=== PATIENT | female | born 1970 | race Caucasian/White ===

== ENCOUNTER → 2024-03-25 09:33 | Outpatient (REF) | payer OTHER, SELFPAY | LOC: RAD 09:33 | PROVIDERS: ATTENDING PHYSICIAN Internal Medicine | DX: M54.12 Radiculopathy, cervical region (principal) | CPT/HCPCS: 72050; 73130 ==

== ENCOUNTER → 2024-04-13 13:42 | Outpatient (REF) | payer OTHER, SELFPAY | LOC: HWRAD 13:42 | PROVIDERS: ATTENDING PHYSICIAN Obstetrics & Gynecology; FAMILY PHYSICIAN Internal Medicine | DX: R10.2 Pelvic and perineal pain (principal) | CPT/HCPCS: 76830; 76856 ==

== ENCOUNTER 2025-05-03 16:38 | Emergency (ER) | payer BC, SELFPAY ==
[2025-05-03 16:40] VITALS: BP 149/91
--- NOTE | 2025-05-03 18:13 | ED.GENMED ---
History of Present Illness
General
Chief Complaint: Extremity Pain (non-traumatic)
Source: patient
Exam Limitations: none
Time Seen by Provider: 05/03/25 17:08
Nursing documentation reviewed up to this point in time: agreed with
History of Present Illness
History of Present Illness:
see MDM
Past History
Past History
ED Past Medical History: Hypercholesterolemia and Psychiatric (Anxiety, insomnia)
ED Past Surgical History: None
Social History
Tobacco: Non-smoker
Alcohol: None
Drug: None
Employment: Employed
Review of Systems
Review of Systems
Allergies reviewed?: Yes
All Other Systems: Not applicable
Phy Exam
Physical Exam
Physical Exam:
GENERAL: Alert , in no apparent distress, comfortable at rest
HEAD: NCAT
CV: 2+ radial pulse, cap refill intact
NEUROLOGICAL: Alert and oriented, no focal neuro deficits, , 5/5 strength, sensation intact, ambulation slight limp right leg
SKIN: Warm and dry,
No bruising, redness, warmth to the right dorsal hand
MUSCULOSKELETAL: Right dorsal hand slightly tender, suspect there is a slight ganglion cyst under the surface, there is a slightly prominent section of vein overlying was tender, she has some painful flexion and extension but full range of motion is
intact without any swelling to the joint of the wrist, full finger range of motion, cap refill intact, no extension of erythema up the hand or wrist
PSYCH: Normal and appropriate interaction.
Course
Orders/Labs/Results
Orders:
Orders
05/03/25 17:37
Venous Doppler Upr Ext Right [US Periph Venous UPPER Ext RT] Urgent
Comment:
Reason For Exam: R hand swelling (eval vein in dorsal hand and dvt)
Vital Signs
Initial and Last Documented VS:
Initial Vital Signs
Temp Pulse Resp BP Pulse Ox
36.7 C 83 20 149/91 99
05/03/25 16:40 05/03/25 16:40 05/03/25 16:40 05/03/25 16:40 05/03/25 16:40
Last Documented Vital Signs
Temp Pulse Resp BP Pulse Ox
36.7 C 76 16 150/81 98
05/03/25 16:40 05/03/25 20:32 05/03/25 20:32 05/03/25 20:32 05/03/25 20:32
MDM/Problems Addressed
Differential Diagnosis Includes:
see MDM
MDM/Problems Addressed:
Note:
CHIEF COMPLAINT(S)
Swelling and tenderness in the left hand.
HISTORY OF PRESENT ILLNESS
The patient is a 55-year-old female who presents with swelling and tenderness in the right dorsal hand. She reports that the symptoms began shortly after a vacation, and describes the area as very tender and sore, although not excruciatingly
painful. The patient works with her hand, using a mouse at a computer all day for work. . Approximately one year ago, an X-ray revealed arthritis in the hand/wrist. The patient is concerned about the possibility of a blood clot, noting that the
veins appear more prominent than usual. However, she denies any recent trauma, IV placement, or history of clotting disorders.
The patient expresses anxiety, fearing a blood clot, and asks if overuse could be a contributing factor. The patient denies any history of significant bleeding or clotting issues.
pt hasn ot had any proximal arm swelling/tenderness
no cold arm/fingers
no redness
pt say stoday when she noticed the pain and swelling the vein was more dilated and now it looks better
still is painful
SOCIAL [employer]MINANTS AFFECTING HEALTH
The patient is employed as a wireless field technician, suggesting frequent use of her hands, which may contribute to her symptoms.
MEDICATIONS
Ibuprofen as needed.
PHYSICAL EXAM
- The left hand: Notable for prominent vein and tenderness. Swelling has decreased since arrival.
- Nursing notes reviewed and vital signs reviewed.
PLAN
An ultrasound of the left hand to rule out the presence of a blood clot.
Recommend the patient to take ibuprofen as anti-inflammatory treatment.
Consider the use of a proton-pump inhibitor like omeprazole while taking ibuprofen or aspirin to protect the stomach.
DIFFERENTIAL DIAGNOSIS
The differential diagnosis includes, in no particular order and is not limited to:
1. Superficial thrombophlebitis
2. Ganglion cyst
3. Osteoarthritis flare-up
4. Tendinitis
5. Synovitis
6. Rheumatoid arthritis exacerbation
7. Carpal tunnel syndrome
8. Dupuytrens contracture
9. Cellulitis
10. Trauma-related swelling
55-year-old female, uses a mouse daily and has had some chronic ongoing right wrist and hand pain presents after she noticed slightly swollen blood vessel/vein on the dorsal aspect of her right wrist today which was tender. She was worried about a
blood clot, she is traveling soon. She has no streaking up her arm, there was no venous access in this spot recently.
On exam I suspect she has a ganglion cyst and some chronic tendinitis, the vein itself does not look significantly swollen and is not firm, patient was insistent on ruling out a blood clot. Did evaluate her right upper extremity for DVT which was
negative and the tech scanned over the surface of the hand without any superficial thrombophlebitis. Patient given a wrist brace, NSAIDs, warm compresses recommended
*Pulse Oximetry
SaO2: 99
Oxygen Mode of Delivery: Room air
Patient hypoxic: no (98)
*Critical Care Note
Total Time (30-74mins, 75-104mins- exclusive of procedures): Not Applicable
ED Attending Note
-
Portions of this chart may have been created with voice recognition software.� Occasional wrong word or��sound alike� substitutions may have occurred due to the inherent limitations of voice recognition software.
Discharge Plan
Departure
Patient Disposition: Home (Routine Discharge)
Date of Disposition: 05/03/25
Time of Disposition: 20:24
Patient with high blood pressure during this ER visit?: Yes
Condition: Fair
Discharge Problem:
Hand pain
Instructions: Muscle and Bone Pain (DC)
Prescriptions:
No Action
fluticasone propionate [Flovent HFA] 1 PUFF HFA aerosol inhaler
1 puff inhalation R BID Qty: 1 0RF
mpfrxisavgtm-ogozwywlp-cfkrckr [Promethazine VC-Codeine] 118 ML syrup
5 ml PO Q6HPRN PRN (Reason: cough) Qty: 100 0RF
cyclobenzaprine 10 MG tablet
10 mg PO TIDPRN PRN (Reason: severe back pain) Qty: 20 0RF
alprazolam 0.5 MG tablet
0.5 mg PO QPM PRN (Reason: insomnia) Qty: 12 0RF
Referrals:
Tim Galeas MD [Family Provider, Internal Medicine] - Follow up in 5-7 days
Activity Restrictions/Additional Instructions:
Not sure entirely the cause your pain and swelling in your right hand however you could have a ganglion cyst which is from overuse usually. This also could be just some arthritic changes causing some inflammation. Importantly the vein that was
dilated or distended on your hand is not have any clot in it and there is no deep vein clot. Warm compresses, NSAIDs which is like ibuprofen 600 mg 3 times a day with food for 3 to 5 days. Follow-up with the hand specialist as needed. Return for
any concerns
Interventions
Interventions:
*Risk Screen - Suicide Last Done: 05/03/25 16:40
*General Assessment Last Done: 05/03/25 16:40
*Neglect/Abuse Screening Last Done: 05/03/25 16:40
*ED- Fall Risk Assessment Last Done: 05/03/25 18:11
*Nursing Disposition Last Done: 05/03/25 20:32
ED-Skin Assessment Last Done: 05/03/25 18:09
ED-Peripheral Vascular Assessment Last Done: 05/03/25 18:09
ED-Musculoskeletal Assessment Last Done: 05/03/25 18:09
Discharge Date and Time
Discharge Date/Time: 05/03/25 20:33
Print Language: KOREAN
[2025-05-03 20:32] VITALS: BP 150/81
== END 2025-05-03 20:33 | disposition home or self-care (01) ==
LOC: EMR 16:38
PROVIDERS: EMERGENCY PHYSICIAN Emergency Medicine; FAMILY PHYSICIAN Internal Medicine
DX: M79.641 Pain in right hand (principal); E78.00 Pure hypercholesterolemia, unspecified; F41.9 Anxiety disorder, unspecified; M19.031 Primary osteoarthritis, right wrist; M19.041 Primary osteoarthritis, right hand
CPT/HCPCS: 99284; 93971

== ENCOUNTER 2025-06-28 00:46 | Day surgery (SDC) | payer BC, SELFPAY ==
[2025-06-27 15:21] VITALS: BP 154/104
[2025-06-27 19:03] VITALS: BMI 28.7
--- NOTE | 2025-06-27 19:11 | ED.GENMED ---
History of Present Illness
General
Chief Complaint: Chest Pain
Source: patient
Exam Limitations: none
Time Seen by Provider: 06/27/25 18:08
Nursing documentation reviewed up to this point in time: agreed with
History of Present Illness
History of Present Illness:
55-year-old female presents emerged ferment due to right back pain and right upper quadrant abdominal pain. This started this morning. She was seen and had a CAT scan of her chest that showed nondisplaced left 5th and 7th rib fractures. There was
no trauma.
Past History
Past History
ED Past Medical History: Hypercholesterolemia and Psychiatric (Anxiety, insomnia)
ED Past Surgical History: Other (Breast implants)
Social History
Tobacco: Non-smoker
Alcohol: None
Drug: None
Employment: Employed
Review of Systems
Review of Systems
Allergies reviewed?: Yes
All Other Systems: Not applicable
Constitutional: Reports no symptoms
EENT: Reports no symptoms
Respiratory: Reports no symptoms
Cardiac: Reports no symptoms
ABD/GI: Reports abdominal pain
: Reports no symptoms
Musculoskeletal: Reports back pain
Skin: Reports no symptoms
Neurological: Reports no symptoms
Endocrine: Reports no symptoms
Hematologic/Lymphatic: Reports no symptoms
Psychiatric: Reports no symptoms
Phy Exam
Physical Exam
Physical Exam:
Physical Exam
General: no apparent distress, not acutely ill
Neck: supple. no meningeal signs. normal posterior pharynx
Heart: s1/s2 regular rate and rhythm, no murmur. equal radial
pulses.
HEENT: Pupils equal round reactive to light, EOMI
Lungs: no acute respiratory distress. clear bilaterally
Abdomen: normal bowel sounds. ruq tenderness. no CVAT
Neuro: alert and oriented. no focal neurological deficits cranial nerves II through XII intact
Skin: no rash
Psychiatric: well kept. interactive and cooperative
Extremities: no edema. no calf tenderness. negative homans. good distal pulses
Scores
Heart Score for Chest Pain Patients
STEMI patient?: Not applicable
Course
Orders/Labs/Results
Orders:
Orders
06/27/25 15:12
Electrocardiogram (*1) Urgent
Reason for Study: Chest Pain
EKG- Treatment ONCE
06/27/25 19:10
CR Chest - 2 Views Urgent
Comment:
Reason For Exam: right rib pain
US Abdomen Complete/Upper Urgent
Comment:
Reason For Exam: ruq pain
06/27/25 19:11
IV Insert/Care/Rem.- Treatment PRN
06/27/25 19:30
Complete Blood Count/With Diff Urgent
Comprehensive Metabolic Panel Urgent
D-Dimer Urgent
Lipase Urgent
Troponin I Urgent
06/27/25 20:07
Ketorolac [Toradol] 15 mg IV NOW STA
06/27/25 20:13
Add On- LAB Urgent
Tests Added?: lipase
06/27/25 23:15
0.9% Sodium Chloride 1000 ml [Nss] 1,000 ml IV BOLUS
Piperacillin/Tazo 4.5 Gram [Zosyn] 4.5 gram in 100 ml IV NOW
Abnormal Lab Results
06/27/25
19:30
RBC 4.10 L 10^6/uL
(4.20-5.40)
MCH 32.2 H pg
(27.0-31.0)
Creatinine 0.5 L mg/dL
(0.6-1.0)
ALT 37 H U/L
(0-35)
06/27/25 19:30
06/27/25 19:30
Vital Signs
Initial and Last Documented VS:
Initial Vital Signs
Temp Pulse Resp BP Pulse Ox
98.5 F 95 18 154/104 100
06/27/25 15:21 06/27/25 15:21 06/27/25 15:21 06/27/25 15:21 06/27/25 15:21
Last Documented Vital Signs
Temp Pulse Resp BP Pulse Ox
97.9 F 79 18 144/90 100
06/27/25 19:12 06/27/25 19:12 06/27/25 19:12 06/27/25 19:12 06/27/25 19:11
MDM/Problems Addressed
Differential Diagnosis Includes:
Pancreatitis cholecystitis rib fracture
MDM/Problems Addressed:
55-year-old female with suspected cholecystitis, large calculus seen on ultrasound, persistent pain. Discussed with general surgery, Dr. Barton who will admit, and plan for likely cholecystectomy. Zosyn given.
*Radiology
Radiology exam reviewed: radiology read reviewed (Ultrasound shows 2 cm gallstone, hepatosteatosis)
*Pulse Oximetry
SaO2: 100
Oxygen Mode of Delivery: Room air
Patient hypoxic: no
*EKG
Interpreted by ED Provider?: Yes
EKG Intrepretation Date: 06/27/25
EKG Intrepretation Time: 15:14
Interpretation: normal
Comparison EKG: no comparison EKG present
Heart Rate: 98
Rate: normal
Rhythm: sinus
[place]: normal axis
Interval: normal interval
QRS Pattern: normal QRS
Ischemia: no ischemia
*Critical Care Note
Total Time (30-74mins, 75-104mins- exclusive of procedures): Not Applicable
Patient Management
Social determinants of health affecting care: Living situation
Discussion with other providers: Pediatric Neurologist (general surgeon)
Escalation/DeEscalation of care consider admission/obs:
admit indicated
ED Attending Note
-
Portions of this chart may have been created with voice recognition software.� Occasional wrong word or��sound alike� substitutions may have occurred due to the inherent limitations of voice recognition software.
Discharge Plan
Departure
Patient Disposition: Admit
Date of Disposition: 06/27/25
Time of Disposition: 23:13
Admit to: Med/Surg
Presentation/result/management discussed w/ accepting MD/DO: general surg Dr. Barton
Patient with high blood pressure during this ER visit?: Yes
Condition: Good
Discharge Problem:
Calculous cholecystitis
Prescriptions:
No Action
fluticasone propionate [Flovent HFA] 1 PUFF HFA aerosol inhaler
1 puff inhalation R BID Qty: 1 0RF
qqzfjqhvjacj-jkypucrge-okjwcpv [Promethazine VC-Codeine] 118 ML syrup
5 ml PO Q6HPRN PRN (Reason: cough) Qty: 100 0RF
cyclobenzaprine 10 MG tablet
10 mg PO TIDPRN PRN (Reason: severe back pain) Qty: 20 0RF
alprazolam 0.5 MG tablet
0.5 mg PO QPM PRN (Reason: insomnia) Qty: 12 0RF
Referrals:
Tim Galeas MD [Family Provider, Internal Medicine]
Interventions
Interventions:
*Risk Screen - Suicide Last Done: 06/27/25 15:21
*General Assessment Last Done: 06/27/25 19:06
*Neglect/Abuse Screening Last Done: 06/27/25 19:06
*ED COVID-19 Vaccine History Last Done: 06/27/25 19:06
*ED Influenza Vaccine History Last Done: 06/27/25 19:06
[facility] Fall Risk Assessment Tool Last Done: 06/27/25 19:06
ED- Cardiac Assessment Last Done: 06/27/25 19:06
Discharge Date and Time
Print Language: FRISIAN
[2025-06-27 19:12] VITALS: BP 144/90
[2025-06-27 19:37] LABS: Hematocrit 38.0 % (37.0-47.0); Hemoglobin 13.2 g/dL (12.0-16.0); Mean Corp Hgb Conc. 34.7 g/dL (33.0-37.0); Mean Corpuscular Volume 92.7 fL (81.0-99.0); Nucleated Red Blood Cells % 0 %; Platelet Count 308 10^3/uL (130-400); Red Cell Dist. Width 11.9 % (11.5-14.5)
[2025-06-27 19:56] LABS: D-Dimer < 0.27 ug/mlFEU (0.00-0.50)
[2025-06-27 20:10] LABS: ALT (SGPT) 37 U/L (0-35); AST (SGOT) 30 U/L (14-36); Albumin 4.8 g/dl (3.5-5.0); Alkaline Phosphatase 52 U/L (38-126); Blood Urea Nitrogen 11 mg/dl (7-17); Calcium 9.4 mg/dl (8.4-10.2); Carbon Dioxide 25 mmol/L (22-30); Chloride 104 mmol/L (98-107); Estimated Creatinine Clearance 95 ml/min; Glucose 85 mg/dl (70-99); Potassium 4.2 mmol/L (3.5-5.1); Sodium 136 mmol/L (135-145); Total Protein 8.1 g/dl (6.3-8.2); eGFR > 60.00
[2025-06-27 20:12] LABS: Troponin I < 0.012 ng/ml
[2025-06-27 20:28] LABS: Lipase 49 U/L (23-300)
[2025-06-27] MEDS: TORADOL 15 MG IV (21:05)
[2025-06-28] MEDS: NSS 1000 IV (00:14)
[2025-06-28] MEDS: ZOSYN 100 IV (00:14)
--- NOTE | 2025-06-28 00:50 | HPS.HSE ---
Addendum entered and electronically signed by Geoffrey Candelario MD 06/28/25 11:39:
Patient seen and examined.
Patient is a 55 yo F with a PMH of anxiety, HLD, and IBS with diarrhea. Ms. Nichole presents with approximately 1 week of RIGHT sided flank pain. Symptoms have been fairly persistent. No clear association with oral intake. Symptoms are
worsened in the evening. No nausea or vomiting. No fevers or chills. She denies any jaundice, pale stools, or tea colored urine. She was previously seen last week by her PCP and underwent a CT of the chest which demonstrated nondisplaced rib
fractures of the LEFT 5th and 7th ribs. She denies any history of trauma. She was prescribed antispasmodics with no significant improvement in her symptoms. She denies any urinary symptoms. Family history notable for a sister postcholecystectomy
with similar back pain on presentation.
Gen: NAD
Abd: soft, NT/ND, non-peritoneal, negative Goins sign
Back: Negative CVA tenderness, no flank ecchymoses or external trauma
Labs and US were reviewed.
Patient is a 55 yo F p/w back pain likely secondary to acute cholecystitis
Symptoms are most likely related to acute cholecystitis given the worsening of discomfort in the evening, presence of a large stone on ultrasound, and family history with similar symptoms. Differential includes gastritis, duodenitis, or MSK
pathology. Given the somewhat discrepancy in diagnosis we will plan on a CT scan of the abdomen pelvis with oral and IV contrast to help better confirm the diagnosis.
The natural history and pathophysiology of biliary and stone disease was discussed. Anatomy was reviewed. Workup was reviewed. Tentative plan for a laparoscopic cholecystectomy with intraoperative cholangiogram. The procedure itself, as well as
the risks, benefits, and alternatives was discussed. Specifically, we discussed the risks of bleeding, infection, injury to surrounding structures (bowel, bile ducts), CBD injury, need for open procedure. Typical post procedure recovery was
discussed. Timing of operative intervention pending workup as noted above and OR availability. All questions answered.
-- CT abdomen/pelvis with PO and IV contrast
-- Abx: Zosyn
-- NPO, IVF
-- Pain control: Tylenol, Toradol, IV Dilaudid as needed
-- Timing of cholecystectomy TBD based on work-up above and OR availability
Original Note:
Family Physician
-
Family Physician: Tim Galeas
Chief Complaint
-
'Right back pain'
History of Present Illness
55 year old patient with PMH of IBS with diarrhea, High cholesterol, presents to ER with the complain of 'chest pain' pointing at the mid chest, right upper back 'stabbing 'pain and 'sharp' pain between shoulder blades. States this pain started
three days ago, been taking cyclobenzaprine and Motrin to relieve the pain but its been getting worse. Patient denies any stomach pain, nausea, vomiting, Voiding without difficulty. LBM 12/3 with diarrhea. Patient reports she was having chest pain,
left back side pain last week, which she went to PCP for and had outpatient CT chest, which showed nondisplaced left 5th and 7th ribs. PCP placed her on Cyclobenzaprine and is planning to have an outpatient Dexa scan this Wednesday. noted CT chest
results on her [employer] jaz on phone.
Medical History
Past Medical History
Past Medical History: Reports GERD, Hypercholesterolemia and Psychiatric (anxiety )
Additional Past Medical History:
IBS with Diarrhea
Past Surgical History: Reports Other
Additional Past Surgical History:
Breast implants
Social History
Tobacco: Non-smoker
Alcohol: None
Drug: None
Living: With Family
Family History
Family History: Not pertinent
Allergies / Home Medications
Allergies reflects when Allergies were last updated in [facility].
Home Medications with original date entered in [facility]
Allergy/Medication List:
Allergies
Allergy/AdvReac Type Severity Reaction Status Date / Time
No Known Allergies Allergy Verified 05/03/25 16:43
Home Medications
fluticasone propionate 110 mcg/actuation HFA aerosol inhaler (Flovent HFA) 1 puff inhalation R BID ##1 08/21/14
uvmiztohgyni-nmvddyaxfrraw-iolngft 6.25 mg-5 mg-10 mg/5 mL oral syrup (Promethazine VC-Codeine) 5 ml PO Q6HPRN PRN cough #100 mL 08/21/14
cyclobenzaprine 10 mg tablet 10 mg PO TIDPRN PRN severe back pain #20 tabs 04/30/16
alprazolam 0.5 mg tablet 0.5 mg PO QPM PRN insomnia #12 tabs 03/11/18
Review of Systems
-
History Source: Patient
A 12 point ROS was completed and negative except as noted: Yes
Constitutional: Reports No Symptoms
EENT: Reports No Symptoms
Respiratory: Reports No Symptoms
Cardiac: Reports No Symptoms
Abdomen/GI: Reports No Symptoms
: Reports No Symptoms
Musculoskeletal: Reports Other (reports back pain, between shoulder blades )
Skin: Reports No Symptoms
Neurological: Reports No Symptoms
Endocrine: Reports No Symptoms
Hematologic/Lymphatic: Reports No Symptoms
Psych: Reports No Symptoms and Calm
Physical Exam
Vital Signs
Vital Signs
Temp Pulse Resp BP Pulse Ox
97.9 F 79 18 144/90 100
06/27/25 19:12 06/27/25 19:12 06/27/25 19:12 06/27/25 19:12 06/27/25 19:11
Physical Exam
General: Well Developed, Well Nourished and No Apparent Distress
HEENT: NormoCephalic, Moist mucous membranes and Atraumatic
Respiratory: Clear and Non Labored Respirations
Cardiac: S1/S2 and Regular Rhythm
Breast: Deferred by me
GI: Soft, Non Tender, Non Distended and Normal Bowel Sounds
Rectal: Deferred by Provider
Genito-urinary: Deferred by me
Musculoskeletal: No Clubbing, No Cyanosis, No Edema and Other (pain induced with palpation right upper back, chest )
Skin: Warm and Dry
Neuro: Awake, AO x 3 and Nonfocal/grossly intact
Hematologic/Lymphatic: No Lymphadenopathy
Psych: Anxious
Laboratory Results
-
06/27/25 19:30
06/27/25 19:30
Laboratory Results
Total Bilirubin 0.7 mg/dl (0.2-1.3) 06/27/25 19:30
AST 30 U/L (14-36) 06/27/25 19:30
ALT 37 U/L (0-35) H 06/27/25:
Alkaline Phosphatase 52 U/L (38-126) 06/27/25:30
Troponin I < 0.012 ng/ml 06/27/25:
Lipase 49 U/L (23-300) 06/27/25 19:30
Impression/Plan
-
55 year old patient with Right back pain, chest pain (mid chest, right upper chest)
# Right upper back pain likely due to cholelithiasis without sonographic evidence of acute cholecystitis,
symptomatic Cholelithiasis?
Abdomen US:
1.Cholelithiasis without sonographic evidence for acute cholecystitis.
2. Gallbladder adenomyomatosis.
3. Increased echogenicity in the liver, compatible with underlying hepatocellular disease, which most commonly relates to fatty infiltration of the liver.
- Continue IV Zosyn
- Continue IV Ketorolac, Dilaudid
- Continue IV Fluids
-Observation
-Admit to Dr. Barton
# Chest pain likely musculoskeletal
-Trop 0.012
-EKG
# Right side back pain
-CT chest done out patient last week
-Dexa scan Wednesday per patient
-Cyclobenzaprine prn
# IBS with Diarrhea
- not on medications
# Hyperlipemia
-Diet and exercise
-on Estrogen meds
SCD's
Full Code
[2025-06-28 02:04] VITALS: BP 131/72
[2025-06-28 02:34] VITALS: BP 131/72
[2025-06-28 02:35] VITALS: BP 148/79; BMI 27.1
[2025-06-28] MEDS: TORADOL 15 MG IV (03:00)
[2025-06-28] MEDS: ZOSYN 50 IV ×4 (05:53→23:59)
[2025-06-28 06:38] LABS: Hematocrit 34.7 % (37.0-47.0); Hemoglobin 12.4 g/dL (12.0-16.0); Mean Corp Hgb Conc. 35.7 g/dL (33.0-37.0); Mean Corpuscular Volume 92.0 fL (81.0-99.0); Platelet Count 263 10^3/uL (130-400); Red Cell Dist. Width 11.9 % (11.5-14.5)
[2025-06-28 07:30] LABS: Blood Urea Nitrogen 10 mg/dl (7-17); Calcium 8.7 mg/dl (8.4-10.2); Carbon Dioxide 25 mmol/L (22-30); Chloride 107 mmol/L (98-107); Estimated Creatinine Clearance 93 ml/min; Glucose 85 mg/dl (70-99); Potassium 4.3 mmol/L (3.5-5.1); Sodium 136 mmol/L (135-145); eGFR > 60.00
[2025-06-28 07:39] VITALS: BP 158/97
[2025-06-28] MEDS: DILAUDID 0.5 MG IV ×2 (09:07→19:12)
[2025-06-28] MEDS: OMNIPAQUE 50 ML PO (13:00)
[2025-06-28 15:12] VITALS: BP 136/75
[2025-06-28] MEDS: ATIVAN 0.5 MG IV (15:13)
[2025-06-28] MEDS: NSS (PRESERVATIVE FREE) 0.25 ML IV (15:13)
[2025-06-28 17:30] LABS: Urine Character Clear (Clear)
[2025-06-28] MEDS: NORMOSOL-R/PLASMALYTE-A 1000 IV (20:15)
[2025-06-28 22:54] VITALS: BP 131/68
[2025-06-29] VITALS (9 sets, daily range): BP systolic 107–127; BP diastolic 58–72
[2025-06-29] MEDS: ZOSYN 50 IV ×3 (06:04→17:56)
--- NOTE | 2025-06-29 09:09 | W.SUR.PREOP ---
Pre-Operative Surgical Note
-
I have examined this patient prior to the performance of the scheduled procedure.
The patient's condition is unchanged from the time of the current History and
Physical and the patient is able to undergo the scheduled procedure.
--- NOTE | 2025-06-29 10:25 | OR.RPT ---
Operative Report
Operative Report
Patient Name: Selvin Nichole
: 1970
Date of Operation: 06/29/2025
Preoperative Diagnosis: Acute cholecystitis
Postoperative Diagnosis: Same
Procedure(s):
Laparoscopic Cholecystectomy with Cholangiogram
Surgeon(s):
Dr. Delaney
Developmental Mathematics Professor(s):
Sherron Green NP
Anesthesia: General
Estimated Blood Loss: 3 cc
Urine Output: None
Drains/Lines/Implants: None
Specimens:
1. Gallbladder and contents
HPI/Surgical Indications:
This is a 55-year-old female who presents with 1 day of postprandial right upper quadrant pain. Exam, labs and imaging are consistent with acute cholecystitis. Risks/Benefits/Alternatives were discussed at length, and the patient consented to
proceed with surgery.
Findings:
The patient was noted to have a mildly dilated and inflamed gallbladder. There was some chronic inflammation in the cystic triangle. A Critical View of Safety was obtained. A cholangiogram showed no distal filling defects and normal biliary
anatomy. The cystic duct was ligated with a clip followed by a 0 PDS Endoloop
Procedure Description:
The patient was brought to the Operating Room and placed in the supine position with one arm tucked. Following uneventful induction of general endotracheal anesthesia, an orogastric tube was placed. The abdomen was prepped and draped in the usual
sterile fashion. A timeout was performed confirming the procedure, consent, and that IV antibiotics were infused and sequential compression devices were confirmed to be on. The abdomen was entered using a left subcostal Veress technique which
required a single pass followed by a 5 mm right upper quadrant Optiview trocar. Pneumoperitoneum to 15 mmHg pressure was obtained without difficulty and we confirmed that no injury had occurred during our entry. The patient was positioned in
reverse Trendelenberg and rotated with the right side up slightly. Two 5 mm trocars were then placed along the right subcostal margin, followed by a 12 mm port in the epigastrium. A locking grasping forceps was placed on the fundus of the
gallbladder where it was then retracted cephalad and to the right. Using appropriate grasping instruments, the peritoneum overlying the triangle of Calot was incised and extended superiorly on both the anterior and posterior gallbladder shahid. The
lower third of the gallbladder was dissected off the cystic plate. The cystic triangle was dissected until 2 and only 2 structures were seen entering the gallbladder, thus a critical view of safety was achieved. The cystic artery was clipped with 5
mm titanium clips and divided. The cystic duct was clipped high on the gallbladder. A ductotomy was made and a cholangiocatheter on an Hess clamp was inserted into the cystic duct. A C-arm was draped and brought into the field. An intra-operative
cholangiogram was performed and was noted to have:
No filling defects in the biliary tree
No significant biliary dilation
Brisk flow of contrast into the duodenum
Normal biliary anatomy
The catheter was then removed and the cystic duct was controlled with a clip followed by 0 PDS Endoloop. After ensuring both the artery and duct were divided, the gallbladder was freed from the liver using electrocautery. There was some spillage
of bile from our ductotomy, but no spillage of stones. There was a robust posterior vessel that was preserved. The gallbladder bed was inspected and excellent hemostasis was obtained. The gallbladder was extracted through the 12 mm trocar site
using an endocatch bag without dilating the port site. The abdomen was again irrigated and excellent hemostasis was assured. All remaining trocars were then removed and the pneumoperitoneum was evacuated. The 12 mm trocar site was closed using 0
PDS suture. All trocar sites were closed at the skin level using 4-0 Monocryl followed by Dermabond. Overall, the patient tolerated the procedure well and was taken to the Recovery Room postoperatively in stable condition.
I was the attending physician and performed the procedure with assistance of the OFFICE SERVICES ASSISTANT above. They were required due to the complexity of the procedure. During the procedure they assisted with port placement, gallbladder retraction, holding camera and
skin closure. I was present for all portions of the case, excluding skin closure.
Keith Delaney MD
--- NOTE | 2025-06-29 10:28 | W.IMMPOSTOP ---
Surgical Immed Post Op Note
-
Primary Surgeon: Keith Delaney MD
Assisting Surgeon: None
Pre-op Diagnosis: Acute cholecystitis
Post-op Diagnosis: Same
Procedure Performed: Laparoscopic cholecystectomy with cholangiogram
Anesthesia Type: General
Specimen / Cultures: Gallbladder and contents
Estimated Blood Loss: 3 cc
Complications: None
Operative Findings: The patient was noted to have a mildly dilated and inflamed gallbladder. There was some chronic inflammation in the cystic triangle. A Critical View of Safety was obtained. A cholangiogram showed no distal filling defects and
normal biliary anatomy. The cystic duct was ligated with a clip followed by a 0 PDS Endoloop
POST OP PLAN:
Imaging: None
Labs: Routine AM
Diet: Advance to Regular as tolerated
Analgesia: Tylenol 650mg q6 Marisel, Dilaudid 0.5mg q2h PRN
Neuro/vascular checks: Per unit protocol
AC/AP: Hold Therapeutic AC, Ok for DVT PPx
Activity: Ad Lilo
Wound/Incisions/Drains: Routine
Abx: Can stop on discharge
Dispo: RNF, anticipate discharge home today.
[2025-06-29] MEDS: DILAUDID 0.25 MG IV ×2 (10:50→11:00)
[2025-06-29] MEDS: DILAUDID 0.5 MG IV ×2 (11:13→12:08)
--- NOTE | 2025-06-29 11:51 | W.DS.TRANS ---
Addendum entered and electronically signed by ARI Romo 07/01/25 14:19:
dictated #[id number]
Original Note:
DC Summary - Psychiatric Nursing Assistant
-
Discharge Instructions:
Discharge Diagnosis/Procedures Acute cholecystitis. Laparoscopic
cholecystectomy
Diet As tolerated
Activity No strenuous activity
Bathing Restrictions OK to Shower
Instructions:
Stand-Alone Forms:
Changes to Home Medications: No
Discharge Medications:
DC Medications w/original date entered in [facility]
fluticasone propionate 110 mcg/actuation HFA aerosol inhaler (Flovent HFA) 1 puff inhalation R BID ##1 08/21/14
gudjfbiomkbk-dpaiifbwadpmp-nsahypo 6.25 mg-5 mg-10 mg/5 mL oral syrup (Promethazine VC-Codeine) 5 ml PO Q6HPRN PRN cough #100 mL 08/21/14
cyclobenzaprine 10 mg tablet 10 mg PO TIDPRN PRN severe back pain #20 tabs 04/30/16
alprazolam 0.5 mg tablet 0.5 mg PO QPM PRN insomnia #12 tabs 03/11/18
oxycodone 5 mg tablet 5 mg PO Q6HPRN PRN breakthrough/severe pain #12 tabs 06/29/25
Home Medication Changes
Pending Results: No
--- NOTE | 2025-06-29 15:29 | CM ---
Patient seen bedside post op.
Denies home care needs.
observation form reviewed.
Has transportation home.
Plan: home no needs.
[2025-06-29] MEDS: ZOFRAN 4 MG IV (16:04)
[2025-06-29] MEDS: NORMOSOL-R/PLASMALYTE-A 1000 IV (16:48)
[2025-06-29] MEDS: NORMOSOL-R/PLASMALYTE-A IV (16:48)
[2025-06-29] MEDS: NON-FORMULARY ITEM PO (17:27)
[2025-06-29] MEDS: TORADOL 15 MG IV (21:57)
[2025-06-30] MEDS: ZOSYN 50 IV ×2 (01:10→06:30)
[2025-06-30 07:49] VITALS: BP 123/66
[2025-06-30] MEDS: TORADOL 15 MG IV (08:05)
[2025-06-30] MEDS: NON-FORMULARY ITEM 1 UNIT PO (08:06)
[2025-06-30 09:53] LABS: Hematocrit 33.4 % (37.0-47.0); Hemoglobin 11.9 g/dL (12.0-16.0); Mean Corp Hgb Conc. 35.6 g/dL (33.0-37.0); Mean Corpuscular Volume 93.3 fL (81.0-99.0); Platelet Count 257 10^3/uL (130-400); Red Cell Dist. Width 12.1 % (11.5-14.5)
[2025-06-30 10:31] LABS: ALT (SGPT) 43 U/L (0-35); AST (SGOT) 31 U/L (14-36); Albumin 3.8 g/dl (3.5-5.0); Alkaline Phosphatase 54 U/L (38-126); Blood Urea Nitrogen 7 mg/dl (7-17); Calcium 8.5 mg/dl (8.4-10.2); Carbon Dioxide 26 mmol/L (22-30); Chloride 104 mmol/L (98-107); Estimated Creatinine Clearance 93 ml/min; Glucose 142 mg/dl (70-99); Potassium 4.0 mmol/L (3.5-5.1); Sodium 135 mmol/L (135-145); Total Protein 6.3 g/dl (6.3-8.2); eGFR > 60.00
[2025-06-30] MEDS: ROXICODONE 5 MG PO (10:48)
[2025-06-30] MEDS: MILK OF MAGNESIA 30 ML PO (10:49)
[2025-06-30] MEDS: NORMOSOL-R/PLASMALYTE-A IV (11:14)
--- NOTE | 2025-06-30 12:37 | W.PN.GS2 ---
Today's Communication / Plan
-
dispo planning
Assessment / Plan
-
55 yo female presenting with gallstone pancreatitis with noted improvement now POD #1 lap ewelina with neg ioc
AFVSS
Tolerating diet
Following expected post operative course
Plan:
Continue low fat diet
OOB/Ambulate
Analgesics prn
Ok for discharge from surgical standpoint, d/c instructions updated and reviewed with patient at bedside
Subjective Data
-
Date of Service: June 30, 2025
Pt seen and examined at bedside wt Dr. Martinez. Denies n/v. Tolerating diet. Some incisional soreness but otherwise well.
Objective Data
-
Intake and Output
06/29/25 06/30/25 07/01/25
06:59 06:59 06:59
Other:
Number of approximated LARGE 2
amounts of urine
Vital Signs
Temp Pulse Resp BP Pulse Ox
97.9 F 76 17 123/66 100
06/30/25 07:49 06/30/25 07:49 06/30/25 07:49 06/30/25 07:49 06/30/25 07:49
Lab Results
06/30/25 08:44
06/30/25 08:44
Calcium 8.5 mg/dl (8.4-10.2) 06/30/25 08:44
Total Bilirubin 0.8 mg/dl (0.2-1.3) 06/30/25 08:44
AST 31 U/L (14-36) 06/30/25 08:44
ALT 43 U/L (0-35) H 06/30/25 08:44
Alkaline Phosphatase 54 U/L (38-126) 06/30/25 08:44
Total Protein 6.3 g/dl (6.3-8.2) D 06/30/25 08:44
Albumin 3.8 g/dl (3.5-5.0) 06/30/25 08:44
Physical Exam
-
NAD
ABD soft, nd, expected incisional tenderness
Incisions with intact glue, no erythema
--- NOTE | 2025-06-30 12:42 | W.PN.GS2 ---
Today's Communication / Plan
-
dispo planning
Assessment / Plan
-
55 yo female presenting with acute cholecystitis now POD #1 lap ewelina with neg ioc
AFVSS
Tolerating diet, ponv resolved
Following expected post operative course
Plan:
Continue low fat diet
OOB/Ambulate
Analgesics prn
MOM x1 dose
Anticipate discharge later today once pain well managed
Subjective Data
-
Date of Service: June 30, 2025
Pt seen and examined at bedside with Dr. Martinez. Denies n/v today. No vomiting since last night. Tolerating diet. C/W right side pain under her ribs. Some incisional discomfort. C/O constipation.
Objective Data
-
Intake and Output
06/29/25 06/30/25 07/01/25
06:59 06:59 06:59
Other:
Number of approximated LARGE 2
amounts of urine
Vital Signs
Temp Pulse Resp BP Pulse Ox
97.9 F 76 17 123/66 100
06/30/25 07:49 06/30/25 07:49 06/30/25 07:49 06/30/25 07:49 06/30/25 07:49
Lab Results
06/30/25 08:44
06/30/25 08:44
Calcium 8.5 mg/dl (8.4-10.2) 06/30/25 08:44
Total Bilirubin 0.8 mg/dl (0.2-1.3) 06/30/25 08:44
AST 31 U/L (14-36) 06/30/25 08:44
ALT 43 U/L (0-35) H 06/30/25 08:44
Alkaline Phosphatase 54 U/L (38-126) 06/30/25 08:44
Total Protein 6.3 g/dl (6.3-8.2) D 06/30/25 08:44
Albumin 3.8 g/dl (3.5-5.0) 06/30/25 08:44
Physical Exam
-
NAD
ABD soft, nd, expected TTP
Incisions well approximated with intact glue
[2025-06-30 14:28] VITALS: BP 133/74
--- NOTE | 2025-06-30 15:03 | CM ---
MD entered order for discharge.
Spoke with patient she said her mom will drive her home .
Pt said she did not need VN .
PLAN Home no needs
== END 2025-06-30 15:00 | disposition home or self-care (01) ==
LOC: SDS 00:46
PROVIDERS: Nurse Practitioner Gerontology; Surgery; ATTENDING PHYSICIAN Surgery; EMERGENCY PHYSICIAN Emergency Medicine; FAMILY PHYSICIAN Internal Medicine
DX: K80.12 Calculus of gallbladder with acute and chronic cholecystitis without obstruction (principal); R07.9 Chest pain, unspecified; M54.6 Pain in thoracic spine; F41.9 Anxiety disorder, unspecified; E78.00 Pure hypercholesterolemia, unspecified; K58.0 Irritable bowel syndrome with diarrhea; R10.A1 Flank pain, right side; D25.9 Leiomyoma of uterus, unspecified; R94.31 Abnormal electrocardiogram [ECG] [EKG]; K76.89 Other specified diseases of liver; K21.9 Gastro-esophageal reflux disease without esophagitis; G47.00 Insomnia, unspecified; R10.13 Epigastric pain; S22.42XA Multiple fractures of ribs, left side, initial encounter for closed fracture; X58.XXXA Exposure to other specified factors, initial encounter; Z98.82 Breast implant status; Z79.51 Long term (current) use of inhaled steroids; Z79.890 Hormone replacement therapy
CPT/HCPCS: 47563; 71046; 74177; 74300; 76000; 76700; 80048; 80053; 81003; 83690; 84484; 85025; 85027; 85379; 87070; 88304; 93005; 96374; 99285; A4300; G0378; Q9967